=== PATIENT | female | born 1995 | race African-American/Black ===

== ENCOUNTER 2017-08-15 19:57 | Inpatient (IN) | payer OTHER ==
[~2017-08-15] VITALS: Ht 157.5 cm; Wt 50.0 kg
[2017-08-15 21:13] LABS: MEAN CORPUSCULAR HEMOGLOBIN 23.1 pg (27.0-33.0); MEAN CORPUSCULAR VOLUME 77.1 fl (80.0-96.0); RED CELL DISTRIBUTION WIDTH 15.2 % (11.5-14.5); WHITE BLOOD COUNT 5.6 10^3/uL (4.0-10.0)
[2017-08-15 21:26] LABS: CONTROL LINE HCG INT CTR LINE PRESENT
[2017-08-15 21:39] LABS: METHADONE URINE NEGATIVE (NEGATIVE)
[2017-08-15 21:42] LABS: ALBUMIN 4.1 GM/DL (3.2-5.2); ALBUMIN/GLOBULIN RATIO 1.05 (1.00-1.93); ALKALINE PHOSPHATASE 79 U/L (45-117); ALT/SGPT 21 U/L (12-78); ANION GAP 9 MEQ/L (8-16); AST/SGOT 16 U/L (15-37); BILIRUBIN,DIRECT 0.1 MG/DL (0.0-0.2); BILIRUBIN,TOTAL 0.4 MG/DL (0.2-1.0); BLOOD UREA NITROGEN 10 MG/DL (7-18); CARBON DIOXIDE LEVEL 26 MEQ/L (21-32); CHLORIDE LEVEL 103 MEQ/L (98-107); CREATININE FOR GFR 0.79 MG/DL (0.55-1.02); GLOMERULAR FILTRATION RATE > 60.0 (>60); GLUCOSE, FASTING 86 MG/DL (70-105); POTASSIUM SERUM 3.8 MEQ/L (3.5-5.1); SODIUM LEVEL 138 MEQ/L (136-145)
[2017-08-15] MEDS ORDERED: MAALOX 30 ML SUSP *UDC PO PRN (22:30)
[2017-08-15] MEDS ORDERED: MOM 30ML SUSPENSION UDC PO PRN (22:30)
[2017-08-15] MEDS ORDERED: traZODone 50 MG TAB PO PRN (22:30)
[2017-08-15] MEDS ORDERED: ACETAMINOPHEN TAB 650MG DOSE (2X325MG) PO PRN (22:30)
--- NOTE | 2017-08-16 12:42 | ECGEPIP ---
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
[2017-08-16] MEDS ORDERED: hydrOXYzine 25 MG TAB PO PRN (15:45)
--- NOTE | 2017-08-16 15:50 | MHHPEPDOC ---
[facility] History & Physical History and Physical DATE OF ADMISSION: Aug 15, 2017 at 22:18 LEGAL STATUS AT ADMISSION: 9:39 emergency admission CHIEF COMPLAINT: . Patient sent a phone text to a officer making statements of self harm HISTORY OF THE PRESENT ILLNESS: Patient is a 22-year-old female, without previous history of psychiatric disorders that made self harm statements to one the staff [place]. According to reports, patient has been more irritable , verbally aggressive and is in danger of being fired from the . Patient denied any symptoms of depression, however, endorse having no changes in social anxiety. Denied any ideas of self-harm or harm to others. Denied any previous attempts or intentions of self harm. Patient denied having any previous psychiatric treatment. No medications and psychotherapy. Patient has been living for almost a year in this area and was transferred from the [employer] in [place], [place] PSYCHIATRIC REVIEW OF SYSTEMS: Affective: .mood changes, but denied symptoms of depression Anxiety: . occasional Trauma: .denied Psychosis: . none Personally: . no diagnosis of personality disorders PAST PSYCHIATRIC HISTORY: none ALLERGIES: Please see below. FAMILY PSYCHIATRIC HISTORY: . SOCIAL HISTORY: single female , born and raised in [place], [place]. She has been in the [employer]/ for about 2 years after graduating from [employer], has been in [employer] for almost a year. SUBSTANCE ABUSE HISTORY: . denied PAST MEDICAL/SURGICAL HISTORY: 1. .none 2. . VITAL SIGNS: Temperature , pulse , respiratory rate , blood pressure , pulse oximetry % on room air. MENTAL STATUS EXAMINATION: General appearance: Patient is a 22 years old female that looks stated age, fair grooming and hygiene, cooperative. Speech: .fluent and coherent Thought processes: .linear, goal directed Thought content: .no ideas of self harm or harm to others, no delusions elicited , no perceptual disturbances Abstract reasoning and computation: .intact Description of associations: .none Description of abnormal or psychotic thoughts: .no psychosis Judgment: .limited Insight: .poor Orientation: .oriented x 3 Recent and remote memory: . intact Attention span and concentration: .normal Fund of knowledge: .average Mood: "ok." Affect: . full range DIAGNOSES: 1. .mood disorder n.o.s, r/o depressive disorder versus adjustment disorder 2. . 3. . ASSESSMENT: 22 years old female without previous history of depressive symptoms or self harm behaviors. 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 Patient denied any symptoms, denied ideas of self harm PROBLEM LIST: 1. .mood/depressive symptoms? 2. . limited insight/judgement 3. .impulsivity? INITIAL TREATMENT PLAN: 1. Patient was admitted on an involuntary legal status 2. Complete history was obtained. 3. With patients permission, family will be contacted and database will be expanded. 4. Patients medication regimen will be reviewed and changed accordingly. 5. Patient will be provided with protected environment. 6. Patient will be treated with individual, group, and milieu therapies. 7. Patient will receive supportive psych-education. 8. Discharge planning will commence immediately. 9. Outpatient follow-up treatment will be strongly recommended. 10. The initial treatment plan will focus initially on: * Depression. * ESTIMATED LENGTH OF STAY: 4-5 DAYS. TIME SPENT COUNSELING AND COORDINATING INITIAL CARE: 50 minutes. Laboratory Data 24H Labs Laboratory Tests 2 08/15/17 20:54: Anion Gap 9, Glomerular Filtration Rate > 60.0, Calcium Level 9.0, Aspartate Amino Transf (AST/SGOT) 16, Alanine Aminotransferase (ALT/SGPT) 21, Alkaline Phosphatase 79, Total Bilirubin 0.4, Direct Bilirubin 0.1, Total Creatine Kinase 120, Total Protein 8.0, Albumin 4.1, Albumin/Globulin Ratio 1.05, Thyroid Stimulating Hormone (TSH) 1.090, Human Chorionic Gonadotropin, Qual NEGATIVE, Salicylates Level < 1.7L, Urine Amphetamines Screen NEGATIVE, Urine Benzodiazepines Screen NEGATIVE, Urine Opiates Screen NEGATIVE, Urine Methadone Screen NEGATIVE, Acetaminophen Level < 2.0L, Urine Barbiturates Screen NEGATIVE , Urine Phencyclidine Screen NEGATIVE, Urine Cocaine Metabolite Screen NEGATIVE , Urine Cannabinoids Screen NEGATIVE, Ethyl Alcohol Level < 0.003 CBC/BMP Laboratory Tests 08/15/17 20:54 Red Blood Count 4.76, Mean Corpuscular Volume 77.1 L, Mean Corpuscular Hemoglobin 23.1 L, Mean Corpuscular Hemoglobin Concent 30.0 L, Red Cell Distribution Width 15.2 H Medications No Active Prescriptions or Reported Meds Allergies Coded Allergies: No Known Allergies (Unverified , 08/15/17) SHALOM ROSSI MD Aug 16, 2017 15:50
[2017-08-16 18:00] VITALS: BP 95/55
[2017-08-17 07:09] VITALS: BP 114/65
[2017-08-17] MEDS ORDERED: INFLUENZA QUADRIVALENT PF VACCINE 0.5ML SYRINGE (90686) IM ONE (09:00)
[2017-08-17 09:43] LABS: PERCENT SATURATION 7.7 % (13.2-45.0)
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
--- NOTE | 2017-08-17 17:07 | MHHPE ---
DATE OF ADMISSION: 08/16/2017 HISTORY OF PRESENT ILLNESS: Please refer to psychiatric history and evaluation for further details on this admission. This examination and history is performed is intended for medical issues, which may need treatment, followup or consultation on this 22-year-old female. ALLERGIES: No known drug allergies. PRIMARY CARE PROVIDER: [facility]. 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 ETOH none. Smokes none. Recreational drug use none. PAST MEDICAL HISTORY: Negative. PAST SURGICAL HISTORY: [facility] teeth extraction. HOME MEDICATIONS: None. FAMILY HISTORY: Noncontributory. LABORATORY STUDIES: WBC 5.6, hemoglobin 11, hematocrit 36.7, MCV 77, platelets 374, CMP was normal. Toxicology screen negative. EKG showed sinus bal with sinus arrhythmia rate of 59. REVIEW OF SYSTEMS: Ten system review was done and was unremarkable. The patient had no physical complaints. PHYSICAL EXAMINATION: GENERAL: This is a 22-year-old cooperative female in no acute distress. VITAL SIGNS: Height 62 inches, weight 51.82 kilograms. Body mass index (BMI) 20.9. Blood pressure 128/78, pulse 62, respirations 16, temperature 98.6. HEENT: The patient is awake, alert and oriented times three. Pupils equal, round, and reactive to light. Extraocular movements intact. (EOMI). Cornea and sclerae clear. Conjunctiva is normal. No facial asymmetry. Pharynx, tongue and gum is pink and moist. Tongue is midline. NECK: Neck is supple without lymphadenopathy. No thyromegaly. No goiter. Carotids 2+ without bruit. CHEST: Clear to auscultation without wheeze or retraction. HEART: Heart is regular. ABDOMEN: Benign. Bowel sounds positive. Genitourinary ()/Rectal: Not done. Extremities: Equal strength with full range of motion. No clubbing, cyanosis, or edema. Peripheral pulses are equal and palpable bilaterally. SKIN: Warm and dry. IMPRESSION: 1. Psychiatric plan per psychiatry. 2. Low mean corpuscular volume (MCV), order serum iron, iron binding capacity and ferritin.
[2017-08-17 18:00] VITALS: BP 103/56
[2017-08-18 06:49] VITALS: BP 133/67
[2017-08-18] MEDS ORDERED: FERROUS SULFATE 325MG TAB PO SCH (09:00)
[2017-08-18] MEDS ORDERED: HYDR-3363 PO (14:53)
[2017-08-18] MEDS ORDERED: TRAZO50TA PO (14:53)
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
== END 2017-08-18 15:00 | disposition home or self-care (01) | DRG 882 ==
LOC: M ED 19:57 → M ED INP 22:18 → M PSY 23:00
PROVIDERS: ADMIT Psychiatry & Neurology Psychiatry; ATTEND Psychiatry & Neurology Psychiatry
DX: F43.23 Adjustment disorder with mixed anxiety and depressed mood (principal); R45.851 Suicidal ideations; F41.1 Generalized anxiety disorder; F43.10 Post-traumatic stress disorder, unspecified; Z79.899 Other long term (current) drug therapy

== ENCOUNTER 2017-10-06 15:12 | Emergency (ER) | payer OTHER ==
[~2017-10-06] VITALS: Ht 157.5 cm; Wt 51.8 kg
[~2017-10-06 15:12] MED LIST: HYDR-3363 PO; TRAZO50TA PO
[2017-10-06 16:49] LABS: MEAN CORPUSCULAR HEMOGLOBIN 23.1 pg (27.0-33.0); MEAN CORPUSCULAR HGB CONC 30.2 g/dl (32.0-36.5); MEAN CORPUSCULAR VOLUME 76.5 fl (80.0-96.0); PLATELET COUNT, AUTOMATED 309 10^3/uL (150-450); RED CELL DISTRIBUTION WIDTH 15.4 % (11.5-14.5)
[2017-10-06 17:24] LABS: ALBUMIN 4.3 GM/DL (3.2-5.2); ALBUMIN/GLOBULIN RATIO 1.05 (1.00-1.93); ALKALINE PHOSPHATASE 76 U/L (45-117); ALT/SGPT 14 U/L (12-78); ANION GAP 9 MEQ/L (8-16); AST/SGOT 15 U/L (7-37); BILIRUBIN,DIRECT < 0.1 MG/DL (0.0-0.2); BILIRUBIN,TOTAL 0.4 MG/DL (0.2-1.0); BLOOD UREA NITROGEN 9 MG/DL (7-18); CALCIUM LEVEL 9.3 MG/DL (8.5-10.1); CARBON DIOXIDE LEVEL 25 MEQ/L (21-32); CHLORIDE LEVEL 104 MEQ/L (98-107); CREATININE FOR GFR 0.76 MG/DL (0.55-1.02); GLOMERULAR FILTRATION RATE > 60.0 (>60); GLUCOSE, FASTING 81 MG/DL (70-105); SODIUM LEVEL 138 MEQ/L (136-145); TOTAL PROTEIN 8.4 GM/DL (6.4-8.2)
[2017-10-06 18:08] LABS: METHADONE URINE NEGATIVE (NEGATIVE)
[2017-10-06 18:49] VITALS: BP 120/56
== END 2017-10-06 18:51 | disposition home or self-care (01) ==
LOC: M ED 15:12
DX: F32.9 Major depressive disorder, single episode, unspecified (principal)
CPT/HCPCS: 36415; 80048; 80076; 80307; 84443; 85027; 99284; G0480